=== PATIENT | female | born 1990 | race American Indian/Alaskan Native ===

== ENCOUNTER 2018-06-21 11:40 | Emergency (ER) | payer MEDICAID ==
[2018-06-21 12:01] VITALS: BP 111/69
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
[2018-06-21] MEDS ORDERED: IBUPROFEN PO ONE (13:38)
--- NOTE | 2018-06-21 13:55 | XRay Report ---
LEFT FOOT, 2 views: History: Fall with foot pain. The bony architecture is intact. Bony alignment is normal. No soft tissue abnormalities are seen. The joint spaces appear preserved. IMPRESSION: Normal left foot.
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
== END 2018-06-21 14:37 | disposition home or self-care (01) ==
LOC: ED 11:40
DX: S96.912A Strain of unspecified muscle and tendon at ankle and foot level, left foot, initial encounter (principal); F17.200 Nicotine dependence, unspecified, uncomplicated; F12.10 Cannabis abuse, uncomplicated; W01.0XXA Fall on same level from slipping, tripping and stumbling without subsequent striking against object, initial encounter; Y93.89 Activity, other specified; Y99.8 Other external cause status; Y92.89 Other specified places as the place of occurrence of the external cause
CPT/HCPCS: 99283

== ENCOUNTER 2018-06-22 05:55 | Emergency (ER) | payer MEDICAID | END 2018-06-22 06:08 | disposition left against medical advice (07) | LOC: ED 05:55 ==